=== PATIENT | female | born 1995 | race Caucasian/White ===

== ENCOUNTER 2020-04-04 23:41 | Emergency (ER) | payer OTHER ==
[~2020-04-04] VITALS: Ht 175.3 cm; Wt 81.4 kg
[2020-04-04 23:43] VITALS: BP 120/84
[2020-04-04] MEDS ORDERED: ALBU83IN INH (23:50)
[2020-04-05] MEDS ORDERED: ALBUTEROL 90 MCG/ACT 8GM HFA INHALER INH ONE
[2020-04-05] MEDS ORDERED: predniSONE 20 MG TAB PO ONE (00:15)
== END 2020-04-05 00:26 | disposition left against medical advice (07) ==
LOC: M ED 23:41
DX: J45.909 Unspecified asthma, uncomplicated (principal); F17.210 Nicotine dependence, cigarettes, uncomplicated; Z53.21 Procedure and treatment not carried out due to patient leaving prior to being seen by health care provider